=== PATIENT | male | born 1975 | race Caucasian/White ===

== ENCOUNTER 2024-04-17 14:35 | Emergency (ER) | payer SELFPAY | END 2024-04-17 17:31 | disposition home or self-care (01) | LOC: MW.ED 14:35 | DX: J21.9 Acute bronchiolitis, unspecified (principal); Z75.8 Other problems related to medical facilities and other health care; Z79.899 Other long term (current) drug therapy | CPT/HCPCS: 71046; 71046-26; 87428-QW; 99283 ==